=== PATIENT | male | born 1945 | race Hispanic/Latino ===

== ENCOUNTER 2018-04-22 19:22 | Emergency (ER) | payer OTHER ==
--- NOTE | 2018-04-22 20:51 | ER ---
Nurse's Notes [facility] Name: Tarik Lorenzo Age: 72 yrs Sex: Male : 1945 Arrival Date: 04/22/2018 Time: 19:24 Bed 30 Private MD: Rancho Goode Diagnosis: Rash and other nonspecific skin eruption Presentation: 04/22 19:40 Presenting complaint: Patient states: Rash to both arms and his back, for the past 3 aj1 weeks. [facility] and he has tried calamine lotion, a steroid pack, benadryl but none of it has helped. Transition of care: patient was not received from another setting of care. Onset of symptoms was April 2018. Risk Assessment: Do you want to hurt yourself or someone else? Patient reports no desire to harm self or others. Initial Sepsis Screen: Does the patient meet any 2 criteria? No. Patient's initial sepsis screen is negative. Does the patient have a suspected source of infection? No. Patient's initial sepsis screen is negative. Care prior to arrival: None. 19:40 Method Of Arrival: Ambulatory aj1 19:40 Acuity: WAGNER 5 aj1 Triage Assessment: 19:46 General: Appears in no apparent distress. comfortable, Behavior is calm, cooperative, aj1 appropriate for age. Pain: Pain currently is 8 out of 10 on a pain scale. Neuro: Level of Consciousness is awake, alert, obeys commands. Cardiovascular: Patient's skin is warm and dry. Respiratory: Airway is patent Respiratory effort is even, unlabored, Respiratory pattern is regular, symmetrical. Historical: - Allergies: 19:46 No Known Allergies; aj1 - Home Meds: 19:46 metformin [Active]; levothyroxine oral [Active]; aj1 - PMHx: 19:46 Diabetes - IDDM; Hypothyroidism; aj1 - Immunization history:: Flu vaccine is up to date. - Social history:: Smoking status: Patient/guardian denies using tobacco. - Ebola Screening: : Patient denies travel to an Ebola-affected area in the 21 days before illness onset. Screenin:53 Abuse screen: Denies threats or abuse. Denies injuries from another. Nutritional rv screening: No deficits noted. Tuberculosis screening: No symptoms or risk factors identified. Fall Risk None identified. Assessment: 19:52 General: Appears in no apparent distress. comfortable, Behavior is calm, cooperative. rv Pain: Denies pain. Neuro: Level of Consciousness is awake, alert, obeys commands, Oriented to person, place, time, situation. Cardiovascular: Capillary refill < 3 seconds. Respiratory: Airway is patent. GI: No signs and/or symptoms were reported involving the gastrointestinal system. : No signs and/or symptoms were reported regarding the genitourinary system. EENT: No signs and/or symptoms were reported regarding the EENT system. Derm: Rash noted that is itchy, on GENERALIZED. Vital Signs: 19:46 BP 134 / 89; Pulse 89; Resp 18; Temp 97.5; Pulse Ox 97% on R/A; Weight 80.74 kg (R); aj1 Height 5 ft. 9 in. (175.26 cm) (R); Pain 8/10; 19:46 Body Mass Index 26.29 (80.74 kg, 175.26 cm) aj1 ED Course: 19:24 Patient arrived in ED. do 19:24 Rancho Goode MD is Private Physician. do 19:45 Triage completed. aj1 19:46 Arm band placed on Patient placed in an exam room. aj1 19:53 Patient has correct armband on for positive identification. Bed in low position. Call rv light in reach. Side rails up X 1. Pulse ox on. NIBP on. 19:56 Jose Enrique Huizar PA is PHCP. jr8 19:56 Christoph Rodas MD is Attending Physician. jr8 20:53 No provider procedures requiring assistance completed. Patient did not have IV access rv during this emergency room visit. Administered Medications: 20:53 Drug: hydrOXYzine 25 mg {Note: given IM in right deltoid.} Route: PO; rv 21:00 Follow up: Response: Medication administered at discharge. rv Outcome: 20:50 Discharge ordered by . jr8 20:54 Discharged to home ambulatory. rv 20:54 Condition: good 20:54 Discharge instructions given to patient, Instructed on discharge instructions, follow up and referral plans. medication usage, Demonstrated understanding of instructions, follow-up care, medications, Prescriptions given X 1. 20:59 Patient left the ED. rv Signatures: Vandana Gordillo RN RN aj1 Jose Enrique Huizar PA PA jr8 Shaye Bernal Ronaldo, RN RN rv Corrections: (The following items were deleted from the chart) 20:59 20:54 Discharge instructions given to patient, Instructed on discharge instructions, rv follow up and referral plans. medication usage, Demonstrated understanding of instructions, follow-up care, medications, Prescriptions given X rv
--- NOTE | 2018-04-22 20:51 | EDPHYS ---
Physician Documentation [facility] Name: Tarik Lorenzo Age: 72 yrs Sex: Male : 1945 Arrival Date: 04/22/2018 Time: 19:24 Bed 30 Private MD: Rancho Goode ED Physician Christoph Rodas HPI: 04/22 20:47 This 72 yrs old Male presents to ER via Ambulatory with complaints of Rash. jr8 20:47 The patient's rash thought to be caused by an unknown cause. The rash is located on the jr8 body diffusely. The rash can be described as papular. Onset: The symptoms/episode began/occurred gradually, 3 week(s) ago. Associated signs and symptoms: Pertinent positives: itching. Severity of symptoms: At their worst the symptoms were moderate in the emergency department the symptoms are unchanged. The patient has not experienced similar symptoms in the past. The patient has not recently seen a physician. Stated that he tried steroid shot by PCP when it originally started and then has been using OTC creams but without relief. Denies any other s/s . Historical: - Allergies: 19:46 No Known Allergies; aj1 - Home Meds: 19:46 metformin [Active]; levothyroxine oral [Active]; aj1 - PMHx: 19:46 Diabetes - IDDM; Hypothyroidism; aj1 - Immunization history:: Flu vaccine is up to date. - Social history:: Smoking status: Patient/guardian denies using tobacco. - Ebola Screening: : Patient denies travel to an Ebola-affected area in the 21 days before illness onset. ROS: 20:47 Eyes: Negative for injury, pain, redness, and discharge, ENT: Negative for injury, jr8 pain, and discharge, Neck: Negative for injury, pain, and swelling, Cardiovascular: Negative for chest pain, palpitations, and edema, Respiratory: Negative for shortness of breath, cough, wheezing, and pleuritic chest pain, Abdomen/GI: Negative for abdominal pain, nausea, vomiting, diarrhea, and constipation, Back: Negative for injury and pain, MS/Extremity: Negative for injury and deformity, Neuro: Negative for headache, weakness, numbness, tingling, and seizure. 20:47 Skin: Positive for rash, diffusely. Exam: 20:47 Eyes: Pupils equal round and reactive to light, extra-ocular motions intact. Lids and jr8 lashes normal. Conjunctiva and sclera are non-icteric and not injected. Cornea within normal limits. Periorbital areas with no swelling, redness, or edema. ENT: Nares patent. No nasal discharge, no septal abnormalities noted. Tympanic membranes are normal and external auditory canals are clear. Oropharynx with no redness, swelling, or masses, exudates, or evidence of obstruction, uvula midline. Mucous membranes moist. Neck: Trachea midline, no thyromegaly or masses palpated, and no cervical lymphadenopathy. Supple, full range of motion without nuchal rigidity, or vertebral point tenderness. No Meningismus. Cardiovascular: Regular rate and rhythm with a normal S1 and S2. No gallops, murmurs, or rubs. Normal PMI, no JVD. No pulse deficits. Respiratory: Lungs have equal breath sounds bilaterally, clear to auscultation and percussion. No rales, rhonchi or wheezes noted. No increased work of breathing, no retractions or nasal flaring. Abdomen/GI: Soft, non-tender, with normal bowel sounds. No distension or tympany. No guarding or rebound. No evidence of tenderness throughout. Back: No spinal tenderness. No costovertebral tenderness. Full range of motion. MS/ Extremity: Pulses equal, no cyanosis. Neurovascular intact. Full, normal range of motion. Neuro: Awake and alert, GCS 15, oriented to person, place, time, and situation. Cranial nerves II-XII grossly intact. Motor strength 5/5 in all extremities. Sensory grossly intact. Cerebellar exam normal. Normal gait. 20:47 Skin: rash a moderate rash is noted, rash can be described as papular, on the back, right arm and left arm. Vital Signs: 19:46 BP 134 / 89; Pulse 89; Resp 18; Temp 97.5; Pulse Ox 97% on R/A; Weight 80.74 kg (R); aj1 Height 5 ft. 9 in. (175.26 cm) (R); Pain 8/10; 19:46 Body Mass Index 26.29 (80.74 kg, 175.26 cm) aj1 MDM: 19:56 Patient medically screened. [facility] 20:47 Data reviewed: vital signs, nurses notes, and as a result, I will discharge patient. jr8 Data interpreted: Pulse oximetry: on room air is 97 %. Interpretation: normal. 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 ED course: Counseled patient on need for close monitoring of blood glucose while on the steroids. Needs to f/u with dermatology at this point for definitive care . Administered Medications: 20:53 Drug: hydrOXYzine 25 mg {Note: given IM in right deltoid.} Route: PO; rv 21:00 Follow up: Response: Medication administered at discharge. rv Disposition: 04/23 01:18 Co-signature as Attending Physician, Christoph Rodas MD. rn Disposition: 04/22/18 20:50 Discharged to Home. Impression: Rash and other nonspecific skin eruption. - Condition is Stable. - Discharge Instructions: Rash. - Prescriptions for Prednisone 20 mg Oral Tablet - take 3 tablets by ORAL route once daily for 3 days then two tablets for 3 days then 1 tablet for 3 days; 18 tablet. - Medication Reconciliation Form, Thank You Letter, Antibiotic Education, Prescription Opioid Use form. - Follow up: Private Physician; When: 1 - 2 days; Reason: Recheck today's complaints, Continuance of care, Re-evaluation by your physician. - Problem is new. - Symptoms have improved. Signatures: Vandana Gordillo RN RN aj1 Christoph Rodas MD MD rn Roszak, Josh, PA PA jr8 Lavon Segundo RN RN rv Corrections: (The following items were deleted from the chart) 04/22 20:59 20:50 04/22/2018 20:50 Discharged to Home. Impression: Rash and other nonspecific skin rv eruption. Condition is Stable. Forms are Medication Reconciliation Form, Thank You Letter, Antibiotic Education, Prescription Opioid Use. Follow up: Private Physician; When: 1 - 2 days; Reason: Recheck today's complaints, Continuance of care, Re-evaluation by your physician. Problem is new. Symptoms have improved. jr8
[2018-04-22] MEDS ORDERED: hydrOXYzine HCl 50 MG/ML VIAL IM ONE (20:56)
[2018-04-22] MEDS ORDERED: predniSONE 20 MG TAB ONE (21:03)
== END 2018-04-22 20:59 | disposition home or self-care (01) ==
LOC: ER 19:22
DX: R21 Rash and other nonspecific skin eruption (principal); E03.9 Hypothyroidism, unspecified; E11.9 Type 2 diabetes mellitus without complications
CPT/HCPCS: 99283; J3410; J7512

== ENCOUNTER 2018-06-26 12:46 | Emergency (ER) | payer OTHER ==
[2018-06-26] MEDS ORDERED: KETOROLAC 30 MG/ML INJ ONE (13:32)
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
== END 2018-06-26 14:25 | disposition home or self-care (01) ==
LOC: ER 12:46
DX: M54.5 Low back pain (principal); V49.40XA Driver injured in collision with unspecified motor vehicles in traffic accident, initial encounter
CPT/HCPCS: 72125; 96372; 99284

== ENCOUNTER 2021-06-29 13:00 | Emergency (ER) | payer OTHER ==
--- OUTSIDE RECORDS SUMMARY | 2021-06-29 13:03 | XMS REPORT | Continuity of Care Document ---
:1945 Author Organization [facility] t Address [address] [place] [address] Care Team Providers Name Role Phone Unavailable Unavailable Unavailable Payers Payer Name Policy Type Policy Number Effective Date Expiration Date María carrasquillo [employer] MED[employer]ARE ADV [id number] 2018 00:00:00 Problems This patient has no known problems. Allergies, Adverse Reactions, Alerts Allergy Allergy Status Severity Reaction(s) Onset Inactive Treating Comm ents Source Name Type Date Date Clinician NO KNOWN Drug Active [facility] ALLERG Class ity of S [facility] Medications This patient has no known medications. Procedures This patient has no known procedures. Encounters Start End Encounter Admission Attending Care Care Encounter Source Date/Time Date/Time Type Type Clinicians Facility Department ID 2021-05-20 2021-05-20 ambulatory [facility] [id number] [address] 00:00:00 [facility]00[facility] 2021-02-20 2021-02-20 Outpatient [facility] [id number] 00:00[facility]00 [facility]00[facility] 2021-02-19 2021-02-19 Outpatient [facility] [id number] [facility] 2021-01-19 2021-01-19 Outpatient [facility] [id number] [address] 00[facility]00[facility]00 [facility]00[facility] 2021-01-06 2021-01-06 Outpatient [facility] [id number] [address] 00[facility]00[facility]00 [facility]00[facility] 2020-12-30 2020-12-30 Outpatient [facility] [id number] [facility] 2020-12-30 2020-12-30 Out[facility] [id number] [facility] 2020-09-29 2020-09-29 [facility] [id number] [facility] 2020-01-09 2020-01-09 Outpatient [facility] [id number] [facility] 13:00:00 13:00:00 [id number] [facility] 2020-01-09 2020-01-09 Outpatient R [facility] [id number] [facility] 13:00:00 13:00:00 [facility] Results This patient has no known results.
[2021-06-29] MEDS ORDERED: DIPHENHYDRAMINE 25 MG TAB/CAP ONE (16:06)
[2021-06-29] MEDS ORDERED: predniSONE 20 MG TAB ONE (16:06)
[2021-06-29] MEDS ORDERED: FAMOTIDINE 20 MG TAB ONE (16:06)
[2021-06-29 16:08] LABS: Absolute Lymphocytes (CBC) 1.6 K/uL (0.7-4.9); Hematocrit 46.6 % (39.6-49.0); Lymphocytes % 19.1 % (15.3-44.8); MPV 7.8 fL (7.6-11.3); RBC Red Blood Cell Count 5.13 M/uL (4.33-5.43)
[2021-06-29 16:23] LABS: Albumin 4.1 g/dL (3.4-5.0); Bilirubin Total 0.5 mg/dL (0.2-1.0); Potassium 3.8 mmol/L (3.5-5.1); Protein, Total 7.8 g/dL (6.4-8.2)
--- NOTE | 2021-06-29 16:40 | EDPHYS ---
Physician Documentation [facility] Name: Tarik Lorenzo Age: 76 yrs Sex: Male : 1945 Arrival Date: 06/29/2021 Time: 13:04 Bed 2 Private MD: Curtis [facility] ED Physician Bryon Ding HPI: 06/29 15:56 This 76 yrs old Male presents to ER via Ambulatory with complaints of Rash, dakot[place] Itching all over. 15:56 The patient's rash thought to be caused by Eczema Dermatitis. The rash is located on d[place] the body diffusely. The rash can be described as erythematous, flat. Onset: The symptoms/episode began/occurred 2 year(s) ago. Associated signs and symptoms: Pertinent positives: burning sensation, Pertinent negatives: None. Severity of symptoms: At their worst the symptoms were moderate. Treatment given at home: Benadryl. The patient has experienced similar episodes in the past, chronically. Historical: - Allergies: 13:56 No Known Allergies; ap3 - Home Meds: 13:56 levothyroxine oral [Active]; metformin [Active]; ap3 - PMHx: 13:56 Diabetes - IDDM; Hypothyroidism; ap3 - Immunization history:: Client reports receiving the 2nd dose of the Covid vaccine, and booster. - Social history:: Smoking status: Patient denies any tobacco usage or history of. Patient uses alcohol, occasionally. - Family history:: not pertinent. ROS: 15:56 Constitutional: Negative for fever, chills, and weight loss, Eyes: Negative for injury, [place]ot[place] pain, redness, and discharge, ENT: Negative for injury, pain, and discharge, Neck: Negative for injury, pain, and swelling, Cardiovascular: Negative for chest pain, palpitations, and edema, Respiratory: Negative for shortness of breath, cough, wheezing, and pleuritic chest pain, Abdomen/GI: Negative for abdominal pain, nausea, vomiting, diarrhea, and constipation, Back: Negative for injury and pain, : Negative for injury, bleeding, discharge, and swelling, MS/Extremity: Negative for injury and deformity, Neuro: Negative for headache, weakness, numbness, tingling, and seizure, Psych: Negative for depression, anxiety, suicide ideation, homicidal ideation, and hallucinations, Allergy/Immunology: Negative for hives, rash, and allergies, Endocrine: Negative for neck swelling, polydipsia, polyuria, polyphagia, and marked weight changes, Hematologic/Lymphatic: Negative for swollen nodes, abnormal bleeding, and unusual bruising. 15:56 Skin: Positive for rash, diffusely. Exam: 15:56 Constitutional: This is a well developed, well nourished patient who is awake, alert, dakotah and in no acute distress. Head/Face: Normocephalic, atraumatic. Eyes: Pupils equal round and reactive to light, extra-ocular motions intact. Lids and lashes normal. Conjunctiva and sclera are non-icteric and not injected. Cornea within normal limits. Periorbital areas with no swelling, redness, or edema. ENT: Nares patent. No nasal discharge, no septal abnormalities noted. Tympanic membranes are normal and external auditory canals are clear. Oropharynx with no redness, swelling, or masses, exudates, or evidence of obstruction, uvula midline. Mucous membranes moist. Neck: Trachea midline, no thyromegaly or masses palpated, and no cervical lymphadenopathy. Supple, full range of motion without nuchal rigidity, or vertebral point tenderness. No Meningismus. Chest/axilla: Normal chest wall appearance and motion. Nontender with no deformity. No lesions are appreciated. Cardiovascular: Regular rate and rhythm with a normal S1 and S2. No gallops, murmurs, or rubs. Normal PMI, no JVD. No pulse deficits. Respiratory: Lungs have equal breath sounds bilaterally, clear to auscultation and percussion. No rales, rhonchi or wheezes noted. No increased work of breathing, no retractions or nasal flaring. Abdomen/GI: Soft, non-tender, with normal bowel sounds. No distension or tympany. No guarding or rebound. No evidence of tenderness throughout. Back: No spinal tenderness. No costovertebral tenderness. Full range of motion. Male : Normal genitalia with no discharge or lesions. MS/ Extremity: Pulses equal, no cyanosis. Neurovascular intact. Full, normal range of motion. Neuro: Awake and alert, GCS 15, oriented to person, place, time, and situation. Cranial nerves II-XII grossly intact. Motor strength 5/5 in all extremities. Sensory grossly intact. Cerebellar exam normal. Normal gait. Psych: Awake, alert, with orientation to person, place and time. Behavior, mood, and affect are within normal limits. 15:56 Skin: Appearance: Color: erythematous, Temperature: normal temperature, Moisture: normal moisture, petechiae, not noted, ecchymosis, not noted, flushing, not noted, diaphoresis is not appreciated, swelling, is not appreciated, abscess, not appreciated, cellulitis, is not appreciated, induration, is not appreciated. Vital Signs: 13:53 BP 143 / 81; Pulse 74; Temp 97.1(TE); Pulse Ox 100% on R/A; Weight 77.11 kg; Height 5 ap3 ft. 9 in. (175.26 cm); 16:18 BP 145 / 83; Pulse 55; Resp 16; Pulse Ox 100% on R/A; ae4 13:53 Body Mass Index 25.10 (77.11 kg, 175.26 cm) ap3 MDM: 15:01 Patient medically screened. dakotah 15:59 Data reviewed: vital signs, nurses notes, lab test result(s), CBC, electrolytes, [place] hepatic panel. Data interpreted: psychosocial rehabilitation counselor: not applicable for this patient encounter. rate is 74 beats/min, rhythm is regular, Pulse oximetry: on room air is 100 %. Counseling: I had a detailed discussion with the patient and/or guardian regarding: the historical points, exam findings, and any diagnostic results supporting the discharge/admit diagnosis, lab results, the need for outpatient follow up, for definitive care, a library circulation clerk, an infectious disease specialist. 06/29 15:09 Order name: CBC with Diff; Complete Time: 16:39 [facility] 06/29 15:09 Order name: Comprehensive Metabolic Panel; Complete Time: 16:39 [place] Administered Medications: 16:11 Drug: predniSONE 60 mg Route: PO; ae4 16:52 Follow up: No change reported ae4 16:11 Drug: Pepcid (famotidine) 40 mg Route: PO; ae4 16:51 Follow up: No change reported ae4 16:11 Drug: Benadryl (diphenhydrAMINE) 50 mg Route: PO; ae4 16:51 Follow up: Response: No adverse reaction; No adverse reaction, no change reported ae4 Disposition Summary: 06/29/21 16:39 Discharge Ordered Location: Home [place] Problem: new d[place]ot[place] Symptoms: have improved [place]ot[place] Condition: Stable [place] Diagnosis - Dermatitis, unspecified [place] - Type 1 diabetes mellitus with hyperglycemia d[place] Followup: [place]ot[place] - With: - When: 2 - 3 days - Reason: Recheck today's complaints, Continuance of care, Re-evaluation by your physician Followup: [place] - With: - When: 2 - 3 days - Reason: Recheck today's complaints, Re-evaluation by your physician Discharge Instructions: - Discharge Summary Sheet dakotah - Contact Dermatitis d[place] - Eczema [place] - Hyperglycemia [place] - Rash, Adult [place] - Rash, Adult, [id number] d[place] - Contact Dermatitis, [id number] [facility] Forms: - Medication Reconciliation Form [place] - Thank You Letter [place] - Antibiotic Education [place] - Prescription Opioid Use [facility] Prescriptions: - Hydroxyzine HCl 25 mg Oral Tablet - take 1 tablet by ORAL route every 6 hours As needed; 30 tablet; Refills: 0, [facility] Product Selection Permitted - Pepcid 20 mg Oral Tablet - take 1 tablet by ORAL route every 12 hours for 30 days; 60 tablet; Refills: 0, [facility] Product Selection Permitted - Prednisone 20 mg Oral Tablet - take 1 tablet by ORAL route once daily for 5 days; 7 tablet; Refills: 0, [facility] Product Selection Permitted Signatures: Dispatcher [employer] Bryon Watts MD MD cha Prokisch, Amanda RN RN ap3 Vidal Jade RN RN ae4
--- NOTE | 2021-06-29 16:40 | ER ---
Nurse's Notes [facility] Name: Tarik Lorenzo Age: 76 yrs Sex: Male : 1945 Arrival Date: 06/29/2021 Time: 13:04 Bed 2 Private MD: Hugo Acevedo Diagnosis: Dermatitis, unspecified;Type 1 diabetes mellitus with hyperglycemia Presentation: 06/29 13:53 Chief complaint: Patient states: he has a rash on his arms, abdomen, and legs that is ap3 itchy. The rash began yesterday. However he states this rash comes and goes for the last 3 years. Coronavirus screen: At this time, the client does not indicate any symptoms associated with coronavirus-19. Ebola Screen: No symptoms or risks identified at this time. Initial Sepsis Screen: Does the patient meet any 2 criteria? No. Patient's initial sepsis screen is negative. Does the patient have a suspected source of infection? No. Patient's initial sepsis screen is negative. Risk Assessment: Do you want to hurt yourself or someone else? Patient reports no desire to harm self or others. Onset of symptoms is unknown. 13:53 Method Of Arrival: Ambulatory ap3 13:53 Acuity: WAGNER 4 ap3 Triage Assessment: 13:57 General: Appears in no apparent distress. Behavior is calm, cooperative. Derm: Rash ap3 noted that is itchy, red. Historical: - Allergies: 13:56 No Known Allergies; ap3 - Home Meds: 13:56 levothyroxine oral [Active]; metformin [Active]; ap3 - PMHx: 13:56 Diabetes - IDDM; Hypothyroidism; ap3 - Immunization history:: Client reports receiving the 2nd dose of the Covid vaccine, and booster. - Social history:: Smoking status: Patient denies any tobacco usage or history of. Patient uses alcohol, occasionally. - Family history:: not pertinent. Screenin:11 Abuse screen: Denies threats or abuse. Nutritional screening: No deficits noted. ae4 Tuberculosis screening: No symptoms or risk factors identified. Fall Risk None identified. Assessment: 16:16 General: Appears in no apparent distress. comfortable, Behavior is calm, cooperative. ae4 Pain: Denies pain. Neuro: Level of Consciousness is awake, alert, obeys commands, Oriented to person, place, time, situation, Appropriate for age. Cardiovascular: Patient's skin is warm and dry. Respiratory: Airway Respiratory effort is even, unlabored, Respiratory pattern is regular, symmetrical. GI: No signs and/or symptoms were reported involving the gastrointestinal system. : No signs and/or symptoms were reported regarding the genitourinary system. EENT: No signs and/or symptoms were reported regarding the EENT system. Derm: Rash noted that is red, raised, on back, chest, abdomen, left femoral area, left hip, right arm and left arm. Musculoskeletal: No deficits noted. Vital Signs: 13:53 BP 143 / 81; Pulse 74; Temp 97.1(TE); Pulse Ox 100% on R/A; Weight 77.11 kg; Height 5 ap3 ft. 9 in. (175.26 cm); 16:18 BP 145 / 83; Pulse 55; Resp 16; Pulse Ox 100% on R/A; ae4 13:53 Body Mass Index 25.10 (77.11 kg, 175.26 cm) ap3 ED Course: 13:04 Patient arrived in ED. mr 13:04 Hugo Acevedo DO is Private Physician. mr 13:56 Triage completed. ap3 13:58 Patient has correct armband on for positive identification. ap3 15:01 Bryon Ding MD is Attending Physician. dakotah 15:55 Inserted saline lock: 22 gauge in left antecubital area, using aseptic technique. Blood ae4 collected. 16:02 Vidal Jade, LAUREL is Primary Nurse. ae4 16:12 Arm band placed on right wrist. ae4 16:39 Hugo Acevedo DO is Referral Physician. d[place]otah 16:39 Gunnar Mcdaniel MD is Referral Physician. [place] 16:50 No provider procedures requiring assistance completed. IV discontinued, intact, ae4 bleeding controlled, No redness/swelling at site. Pressure dressing applied. Administered Medications: 16:11 Drug: predniSONE 60 mg Route: PO; ae4 16:52 Follow up: No change reported ae4 16:11 Drug: Pepcid (famotidine) 40 mg Route: PO; ae4 16:51 Follow up: No change reported ae4 16:11 Drug: Benadryl (diphenhydrAMINE) 50 mg Route: PO; ae4 16:51 Follow up: Response: No adverse reaction; No adverse reaction, no change reported ae4 Intake: Outcome: 16:39 Discharge ordered by MD. claire 16:50 Discharged to home ambulatory. ae4 16:50 Condition: stable 16:50 Condition: stable 16:50 Condition: stable 16:50 Discharge instructions given to patient, Instructed on discharge instructions, follow up and referral plans. medication usage, Demonstrated understanding of instructions, follow-up care, medications, Prescriptions given X 3. 16:50 Patient left the ED. ae4 Signatures: Bryon Ding MD MD cha Rivera, Mary mr Prokisch, Amanda, RN RN ap3 Vidal Jade RN RN ae4
[2021-06-29 16:58] VITALS: TEMP 97.1; O2SAT 100
[2021-06-29 17:01] VITALS: BP 145/83
== END 2021-06-29 16:50 | disposition home or self-care (01) ==
LOC: ER 13:00
DX: L30.9 Dermatitis, unspecified (principal); E10.65 Type 1 diabetes mellitus with hyperglycemia; E03.9 Hypothyroidism, unspecified
CPT/HCPCS: 36415; 80053; 85025; 99284; J7512

== ENCOUNTER 2022-05-21 19:43 | Emergency (ER) | payer OTHER ==
[2022-05-21] MEDS ORDERED: MAGNESIUM SULF 1GM/2ML VIAL IM ONE (19:44)
[2022-05-21] MEDS ORDERED: EPINEPHrine 1 MG/10 ML SYR IV ONE (19:44)
[2022-05-21] MEDS ORDERED: Caclcium Chloride 10% INJ SYR IV ONE (19:44)
--- OUTSIDE RECORDS SUMMARY | 2022-05-21 19:47 | XMS REPORT | Continuity of Care Document ---
:1945 Author Organization [facility] t Address [address] [place] [address] [address]. [address] [place] [address] Care Team Providers Name Role Phone Hugo Acevedo Attending Clinician Unavailable Payers Payer Name Policy Type Policy Number Effective Date Expiration Date S neida AETNA MEDICARE C1 [id number] 2020 Common Spi rit 00:00:[address] - [facility] AENA MEDICARE [id number] 2018 ADV 00:00:00 Problems Condition Condition Condition Status Onset Resolution Last Treating Co mments Source Name Details Category Date Date Treatment Clinician Date [id number] Hyperlipid Problem Active Com mon emia, Spirit unspecifie - [facility] [id number] Type 2 Problem Active Common diabetes Spirit mellitus - [facility] with 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 - [facility] rhinitis, [facility] trigger [facility] Allergies, Adverse Reactions, Alerts Allergy Allergy Status Severity Reaction(s) Onset Inactive Treating Comm ents Source Name Type Date Date Clinician NO KNOWN Drug Active Univers ALLERGIE Class ity of [facility] Social History Social Habit Start Date Stop Date Quantity Comments Source History of Tobacco Use Co mmon [facility] Sex Assigned At Com mon [facility] Smoking Status Start Date Stop Date Source Never Smoker Common [facility] Medications Ordered Filled Start Stop Current Ordering Indication Dosage Frequency Signature Comments Components Source Medication Medication Date Date Medication? Clinician (SIG) Name Name Kensonal Valencia 2020-07 No 40mg Common (Triamcinol (Triamcinol 1-17 S pirit one) one) 00:00: - [facility] Annie Valencia 2020-07 No 40mg Common (Triamcinol (Triamcinol 1-17 S pirit one) one) 00:00: - [facility] Annie Valencia 2020-07 No 40mg Common (Triamcinol (Triamcinol 1-17 S pirit one) one) 00:00: - [facility] Medrol 4 MG Medrol 4 MG 2020-07- No Medrol 4 1-17 11-23 MG 00:00: 00:00 00 :00 Annie Valencia No 40mg Common (Triamcinol (Triamcinol 8-20 S pirit one) one) 00:00: - [facility] Annie Valencia No 40mg Common (Triamcinol (Triamcinol 8-20 S pirit one) one) 00:00: - [facility] Annie Valencia No 40mg Common (Triamcinol (Triamcinol 8-20 S pirit one) one) 00:00: - [facility] Gabapentin Gabapentin No 1{capsu QD Gabapentin 300 MG 300 MG le} 300 MG Cholecalcif Cholecalcif No 1{table QD Cholecalci dayna 50 MCG dayna 50 MCG t} ferol 50 (1999) (1999) MCG (1999) metFORMIN metFORMIN No 1{table BID metFORMIN HCl 1000 MG HCl 1000 MG t_with_ HCl 1000 a_meal} MG Gabapentin Gabapentin No 1{capsu QD Gabapentin 300 MG 300 MG le} 300 MG Triamcinolo Triamcinolo No 1{appli BID Triamcinol ne ne cation_ one Acetonide Acetonide to_affe Acetonide 0.025 % 0.025 % cted_ar 0.025 % ea} metFORMIN metFORMIN No 1{table QD metFORMIN HCl 500 MG HCl 500 MG t_with_ HCl 500 MG a_meal} Cholecalcif Cholecalcif No 1{table QD Cholecalci dayna 50 MCG dayna 50 MCG t} ferol 50 (1999) (1999) MCG (1999) glipiZIDE glipiZIDE No QD glipiZIDE 10 MG 10 MG 10 MG Levothyroxi Levothyroxi No QD Levothyrox ne Sodium ne Sodium ine Sodium 100MCG 100MCG 100MCG metFORMIN metFORMIN No 1{table BID HCl 1000 MG HCl 1000 MG t_with_ a_meal} Gabapentin Gabapentin No 1{capsu QD 300 MG 300 MG le} Levothyroxi Levothyroxi No QD ne Sodium ne Sodium 112 MCG 112 MCG Triamcinolo Triamcinolo No 1{appli BID ne ne cation_ Acetonide Acetonide to_affe 0.025 % 0.025 % cted_ar ea} Cholecalcif Cholecalcif No 1{table QD dayna 50 MCG dayna 50 MCG t} (1999) (1999) glipiZIDE glipiZIDE No BID 10 MG 10 MG Triamcinolo Triamcinolo No 1{appli BID Triamcinol ne ne cation_ one Acetonide Acetonide to_affe Acetonide 0.025 % 0.025 % cted_ar 0.025 % ea} Cholecalcif Cholecalcif No 1{table QD Cholecalci dayna 50 MCG dayna 50 MCG t} ferol 50 (1999) (1999) MCG (1999) Gabapentin Gabapentin No 1{capsu QD Gabapentin 300 MG 300 MG le} 300 MG metFORMIN metFORMIN No 1{table BID metFORMIN HCl 1000 MG HCl 1000 MG t_with_ HCl 1000 a_meal} MG glipiZIDE glipiZIDE No BID glipiZIDE 10 MG 10 MG 10 MG Levothyroxi Levothyroxi No QD Levothyrox ne Sodium ne Sodium ine Sodium 112 MCG 112 MCG 112 MCG Triamcinolo Triamcinolo No 1{appli BID Triamcinol ne ne cation_ one Acetonide Acetonide to_affe Acetonide 0.025 % 0.025 % cted_ar 0.025 % ea} glipiZIDE glipiZIDE No BID glipiZIDE 10 MG 10 MG 10 MG Levothyroxi Levothyroxi No QD Levothyrox ne Sodium ne Sodium ine Sodium 112 MCG 112 MCG 112 MCG Gabapentin Gabapentin No 1{capsu QD Gabapentin 300 MG 300 MG le} 300 MG Cholecalcif Cholecalcif No 1{table QD Cholecalci dayna 50 MCG dayna 50 MCG t} ferol 50 (1999) (1999) MCG (1999) metFORMIN metFORMIN No 1{table BID metFORMIN HCl 1000 MG HCl 1000 MG t_with_ HCl 1000 a_meal} MG Triamcinolo Triamcinolo No 1{appli BID Triamcinol ne ne cation_ one Acetonide Acetonide to_affe Acetonide 0.025 % 0.025 % cted_ar 0.025 % ea} glipiZIDE glipiZIDE No BID glipiZIDE 10 MG 10 MG 10 MG Levothyroxi Levothyroxi No QD Levothyrox ne Sodium ne Sodium ine Sodium 112 MCG 112 MCG 112 MCG Vital Signs Vital Name Observation Time Observation Value Comments Source height 2022-02-23 09:50:00 67.5 [in_i] [facility] weight 2022-02-23 09:50:00 174 [lb_av] [facility] temperature 2022-02-23 09:50:00 96.9 [degF] [facility] bmi 2022-02-23 09:50:00 26.85 kg/m2 [facility] oximetry 2022-02-23 09:50:00 96 % [facility] respiratory rate 2022-02-23 09:50:00 16 /min Comm on [facility] blood pressure 2022-02-23 09:50:00 131 mm[Hg] [facility] - systolic [facility] blood pressure 2022-02-23 09:50:00 74 mm[Hg] [facility] - diastolic [facility] weight 2021-11-24 10:00:00 175.6 [lb_av] [facility] temperature 2021-11-24 10:00:00 97.7 [degF] [facility] bmi 2021-11-24 10:00:00 25.93 kg/m2 [facility] oximetry 2021-11-24 10:00:00 97 % [facility] respiratory rate 2021-11-24 10:00:00 18 /min Comm on [facility] blood pressure 2021-11-24 10:00:00 123 mm[Hg] Common [facility] - systolic [facility] blood pressure 2021-11-24 10:00:00 73 mm[Hg] Common [facility] - diastolic [facility] height 2021-11-24 10:00:00 69 [in_i] Common S pirit - [facility] height 2021-07-10 08:40:00 69 [in_i] Common S pirit [facility] weight 2021-07-10 08:40:00 175.5 [lb_av] [facility] temperature 2021-07-10 08:40:00 97.7 [degF] [facility] bmi 2021-07-10 08:40:00 25.91 kg/m2 [facility] oximetry 2021-07-10 08:40:00 99 % Common S [facility] respiratory rate 2021-07-10 08:40:00 18 /min Comm on [facility] blood pressure 2021-07-10 08:40:00 135 mm[Hg] Common [facility] - systolic [facility] blood pressure 2021-07-10 08:40:00 73 mm[Hg] Common [facility] - diastolic [facility] height 2021-05-20 15:10:00 69 [in_i] Common S pirit - [facility] weight 2021-05-20 15:10:00 178.4 [lb_av] Common [facility] temperature 2021-05-20 15:10:00 97.0 [degF] [facility] bmi 2021-05-20 15:10:00 26.34 kg/m2 [facility] oximetry 2021-05-20 15:10:00 97 % Common S [facility] respiratory rate 2021-05-20 15:10:00 16 /min Comm on [facility] blood pressure 2021-05-20 15:10:00 131 mm[Hg] Common [facility] - systolic [facility] blood pressure 2021-05-20 15:10:00 73 mm[Hg] Common [facility] - diastolic [facility] Procedures This patient has no known procedures. Encounters Start End Encounter Admission Attending Care Care Encounter Source Date/Time Date/Time Type Type Clinicians Facility Department ID 2022-02-22 Outpatient Acevedo, STLMLC STLMLC [id number] Common 13:59:01 Hugo [facility] 2021-07-29 Outpatient Acevedo, STLMLC STLMLC [id number] Common 14:32:13 Hugo [facility] 2021-07-29 Outpatient Acevedo, STLMLC STLMLC [id number] Common 14:31:53 Hugo [facility] 2021-07-29 Outpatient Acevedo, STLMLC STLMLC [id number] Common 13:23:06 Hugo [address] [facility] 2021-07-29 Outpatient Acevedo, STLMLC STLMLC [id number] Common 13:19:41 Hugo 54423 [facility] 2021-07-29 Outpatient Acevedo, STLMLC STLMLC [id number] Common 12:45:38 Hugo 23418 [facility] 2022-02-23 2022-02-23 OFFICE STLMLC STLMLC [id number] Co mmon 00:00:00 00:00:00 VISIT [facility] ESTAB PT - [facility] LEVEL 4 [facility] 2022-02-23 2022-02-23 (TEL) STLMLC STLMLC [id number] Co mmon 00:00:00 00:00:00 [facility] 2021-11-24 2021-11-24 (ESTPT) STLMLC STLMLC [id number] Co mmon 00:00:00 00:00:00 Yobany ang [facility] 2021-07-10 2021-07-10 OFFICE STLMLC STLMLC [id number] Co mmon 00:00:00 00:00:00 VISIT Jericho OWEN PT - [facility] LEVEL [address] [facility] 2021-05-20 2021-05-20 OFFICE STLMLC STLMLC [id number] Co mmon 00:00:00 00:00:00 VISIT JEROME mejias PT LEVEL 3 - [facility] 2021-02-20 2021-02-20 Outpatient STLMLC STLMLC [id number] Common 00:00:00 00:00:00 [facility] 2021-02-19 2021-02-19 Outpatient STLMLC STLMLC [id number] Common 00:00:00 00:00:00 [facility] 2021-01-19 2021-01-19 Outpatient STLMLC STLMLC [id number] Common 00:00:00 00:00:00 [facility] 2021-01-06 2021-01-06 Outpatient STLMLC STLMLC [id number] Common 00:00:00 00:00:00 [facility] 2020-12-30 2020-12-30 Outpatient STLMLC STLMLC [id number] Common 00:00:00 00:00:00 [facility] 2020-12-30 2020-12-30 Outpatient STLMLC STLMLC [id number] Common 00:00:00 00:00:00 [facility] 2020-09-29 2020-09-29 Outpatient STLMLC STLMLC [id number] Common 00:00:00 00:00:00 [facility] 2020-01-09 2020-01-09 Outpatient R [facility] [id number] Univers 13:00:00 13:00:00 [facility] Results Test Description Test Time Test Comments Results Result Comments Source Lipid Panel With LDL/HDL Ratio 2022-02-16 00:00:00 Test Item Value Reference Range Interpretation Comme nts Cholesterol, Total (test code 166 mg/dL See_Comment [Automated message] The system = 2093-3) which generated this result transmitted ref erence range: 100-199 mg/dL. The reference range was not u sed to interpret this result as normal/abnormal. Triglycerides (test code = 84 mg/dL See_Comment [Automated message] The system 8941-8) which generated this result transmitted ref erence range: 0-149 mg/dL. Th e reference range was not used to interpret this result as hima l/abnormal. HDL Cholesterol (test code = 48 mg/dL See_Comment [Automated message] The system 9841-9) which generated this result transmitted ref erence range: >39 mg/dL. The refe rence range was not used to int erpret this result as hima l/abnormal. UA/M w/rflx Culture, [id number] 00:00:00 Test Item Value Reference Range Interpretation Comments Specific [place] (test >=1.030 1.005-1.030 A code = 2965-2) pH (test code = 5.5 5.0-7.5 5803-2) Urine-Color (test code Yellow Yellow = 5778-6) Appearance (test code Clear Clear = 5767-9) WBC Esterase (test Negative Negative code = 5799-2) Protein (test code = Trace Negative/Trace 89821-3) Glucose (test code = Negative Negative 2349-9) Ketones (test code = Negative Negative 2514-8) Occult Blood (test Negative Negative code = 5794-3) Bilirubin (test code = Negative Negative 5770-3) Urobilinogen,Semi-Qn 0.2 mg/dL See_Comment [Autom ated message] (test code = 16084-1) The sy stem which generated this result transmitted ref erence range: 0.2-1.0 mg/dL. The reference r alvin was not used to interpret this result as normal/abnor mal. Nitrite, Urine (test Negative Negative code = 5802-4) Microscopic See below: Examination (test code = 94451-3) Urinalysis Reflex (test code = UNLOINC) Prostate-Specific Ag, [id number] 00:00:00 Test Item Value Reference Range Interpretation Comments Prostate Specific Ag 0.4 ng/mL See_Comment [Autom ated message] (test code = 2857-1) The sys tem which generated this result transmitted ref erence range: 0.0-4.0 ng/mL. The reference r alvin was not used to int erpret this result as normal/abnormal . Thyroid Panel With [id number] 00:00:00 Test Item Value Reference Range Interpretation Comments TSH (test code = 4.060 uIU/mL See_Comment [Automated message] 11434-4) The system [employer] generated this result transmitted ref erence range: 0.450-4. 500 uIU/mL. The ref erence range was not u sed to interpret this result as normal/abnor mal. Thyroxine (T4) (test 8.8 ug/dL See_Comment [Autom ated message] code = 3026-2) The system [facility] generated this result transmitted ref erence range: 4.5-12.0 ug/dL. The refe rence range was not u sed to interpret this result as normal/abnor mal. T3 Uptake (test code 29 % See_Comment [Autom ated message] = 3050-2) The system [employer] generated this result transmitted ref erence range: 24-39 %. The reference range was not used to int erpret this result as normal/abnormal . Free Thyroxine Index 2.6 1.2-4.9 (test code = 57184-0) Microalbumin/Creat Ratio, Random [id number] 00:00:00 Test Item Value Reference Range Interpretation Comments Creatinine, Urine 204.7 mg/dL Not Estab. mg/dL (test code = 2161-8) Albumin, Urine 7.5 ug/mL Not Estab. ug/mL (test code = 51704-4) Alb/Creat Ratio 4 mg/g creat See_Comment [Automated message] (test code = The system [employer] 01914-7) generated this result transmitted ref erence range: 0-29 mg/ g creat. The reference r alvin was not used to int erpret this result as normal/abnormal . Hemoglobin [id number] 00:00:00 Test Item Value Reference Range Interpretation Comments Hemoglobin A1c (test 7.2 % See_Comment H [Autom ated message] The code = 4548-4) system which generated this result tra nsmitted reference range : 4.8-5.6 %. The referenc e range was not used to interpret this result as normal/abnormal . Comp. Metabolic Panel (14) (CMP)2022-02-16 00:00:00 Test Item Value Reference Range Interpretation Comments Glucose (test code = 89 mg/dL See_Comment [Autom ated message] 8731-7) The system [employer] generated this result transmitted ref erence range: 65-99 mg /dL. The reference r alvin was not used to interpret this result as normal/abnor mal. BUN (test code = 22 mg/dL See_Comment [Automated message] 3094-0) The system [employer] generated this result transmitted ref erence range: 8-27 mg/ dL. The reference r alvin was not used to interpret this result as normal/abnor mal. Creatinine (test code 0.81 mg/dL See_Comment [Auto mated message] = 2160-0) The system [employer] generated this result transmitted ref erence range: 0.76-1.2 7 mg/dL. The refe rence range was not u sed to interpret this result as normal/abnor mal. BUN/Creatinine Ratio 27 10-24 H (test code = 3097-3) Sodium (test code = 138 mmol/L See_Comment [Automa lázaro message] 1081-2) The system [employer] generated this result transmitted ref erence range: 134-144 mmol/L. The ref erence range was not u sed to interpret this result as normal/abnor mal. Potassium (test code = 3.9 mmol/L See_Comment [Aut omated message] 0406-3) The system [employer] generated this result transmitted ref erence range: 3.5-5.2 mmol/L. The ref erence range was not u sed to interpret this result as normal/abnor mal. Chloride (test code = 102 mmol/L See_Comment [Auto mated message] 2884-0) The system [employer] generated this result transmitted ref erence range: 96-106 m mol/L. The reference r alvin was not used to interpret this result as normal/abnor mal. Carbon Dioxide, Total 21 mmol/L See_Comment [Auto mated message] (test code = 8955-9) The s tem which generated this result transmitted ref erence range: 20-29 mm ol/L. The reference r alvin was not used to interpret this result as normal/abnor mal. Calcium (test code = 9.2 mg/dL See_Comment [Autom ated message] 84381-5) The system [facility] generated this result transmitted ref erence range: 8.6-10.2 mg/dL. The refe rence range was not u sed to interpret this result as normal/abnor mal. Protein, Total (test 6.3 g/dL See_Comment [Autom ated message] code = 2885-2) The system [facility] generated this result transmitted ref erence range: 6.0-8.5 g/dL. The reference r alvin was not used to interpret this result as normal/abnor mal. Albumin (test code = 4.3 g/dL See_Comment [Autom ated message] 1751-7) The system [facility] generated this result transmitted ref erence range: 3.7-4.7 g/dL. The reference r alvin was not used to interpret this result as normal/abnor mal. Globulin, Total (test 2.0 g/dL See_Comment [Auto mated message] code = 67478-8) The system [facility] generated this result transmitted ref erence range: 1.5-4.5 g/dL. The reference r alvin was not used to interpret this result as normal/abnor mal. A/G Ratio (test code = 2.2 1.2-2.2 1759-0) Bilirubin, Total (test 0.6 mg/dL See_Comment [Aut omated message] code = 1975-2) The system [facility] generated this result transmitted ref erence range: 0.0-1.2 mg/dL. The reference r alvin was not used to interpret this result as normal/abnor mal. Alkaline Phosphatase 54 IU/L See_Comment [Autom ated message] (test code = 6768-6) The [facility] tem which generated this result transmitted ref erence range: 44-121 I U/L. The reference r alvin was not used to interpret this result as normal/abnor mal. AST (SGOT) (test code 20 IU/L See_Comment [Auto mated message] = 1920-8) The system [facility] generated this result transmitted ref erence range: 0-40 IU/ L. The reference range was not used to int erpret this result as normal/abnormal . ALT (SGPT) (test code 17 IU/L See_Comment [Auto mated message] = 0622-6) The system whic h generated this result transmitted ref erence range: 0-44 IU/ L. The reference range was not used to int erpret this result as normal/abnormal . Uric Acid, [id number] 00:00:00 Test Item Value Reference Range Interpretation Comments Uric Acid (test 4.5 mg/dL See_Comment [Automated message] The code = 3084-1) system which generated this result tra nsmitted reference range : 3.8-8.4 mg/dL. The refe rence range was not u sed to interpret this result as normal/abnormal . CBC With Differential/[id number] 00:00:00 Test Item Value Reference Range Interpretation Comments WBC (test code = 7.3 x10E3/uL See_Comment [Automated 2278-2) message] The sy stem which generated this result transmitted reference range : 3.4-10.8 x10E3/ uL. The reference r alvin was not used to interpret this result as normal/abnormal . RBC (test code = 4.72 x10E6/uL See_Comment [Automate d 309-8) message] The sy stem which generated this result transmitted reference range : 4.14-5.80 x10E6 /uL. The reference r alvin was not used to interpret this result as normal/abnormal . Hemoglobin (test code 14.3 g/dL See_Comment [Auto mated = 368-7) message] The sy stem which generated this result transmitted reference range : 13.0-17.7 g/dL. The reference range was not used to interpret this result as normal/abnormal . Hematocrit (test code 41.7 % See_Comment [Auto mated = 5464-3) message] The sy stem which generated this result transmitted reference range : 37.5-51.0 %. Th e reference range was not used to interpret this result as normal/abnormal . MCV (test code = 88 fL See_Comment [Automated 417-2) message] The sy stem which generated this result transmitted reference range : 79-97 fL. The reference range was not used to interpret this result as normal/abnormal . MCH (test code = 30.3 pg See_Comment [Automated 785-6) message] The sy stem which generated this result transmitted reference range : 26.6-33.0 pg. T he reference range was not used to interpret this result as normal/abnormal . MCHC (test code = 34.3 g/dL See_Comment [Automate d 786-4) message] The sy stem which generated this result transmitted reference range : 31.5-35.7 g/dL. The reference range was not used to interpret this result as normal/abnormal . RDW (test code = 13.1 % See_Comment [Automated 788-0) message] The sy stem which generated this result transmitted reference range : 11.6-15.4 %. Th e reference range was not used to interpret this result as normal/abnormal . Platelets (test code 270 x10E3/uL See_Comment [Autom ated = 777-3) message] The sy stem which generated this result transmitted reference range : 150-450 x10E3/u L. The reference r alvin was not used to interpret this result as normal/abnormal . Neutrophils (test 64 % Not Estab. % code = 770-8) Lymphs (test code = 22 % Not Estab. % 736-9) Monocytes (test code 10 % Not Estab. % = 5905-5) Eos (test code = 3 % Not Estab. % 713-8) Basos (test code = 1 % Not Estab. % 706-2) Immature Cells (test code = UNLOINC) Neutrophils 4.6 x10E3/uL See_Comment [Automated (Absolute) (test code messag e] The system = 751-8) which generated this result transmitted reference range : 1.4-7.0 x10E3/u L. The reference r alvin was not used to interpret this result as normal/abnormal . Lymphs (Absolute) 1.6 x10E3/uL See_Comment [Automate d (test code = 731-0) message] The system which generated this result transmitted reference range : 0.7-3.1 x10E3/u L. The reference r alvin was not used to interpret this result as normal/abnormal . Monocytes(Absolute) 0.7 x10E3/uL See_Comment [Automa lázaro (test code = 742-7) message] The system which generated this result transmitted reference range : 0.1-0.9 x10E3/u L. The reference r alvin was not used to interpret this result as normal/abnormal . Eos (Absolute) (test 0.2 x10E3/uL See_Comment [Autom ated code = 711-2) message] The s ystem which generated this result transmitted reference range : 0.0-0.4 x10E3/u L. The reference r avlin was not used to interpret this result as normal/abnormal . Baso (Absolute) (test 0.1 x10E3/uL See_Comment [Auto mated code = 704-7) message] The s ystem which generated this result transmitted reference range : 0.0-0.2 x10E3/u L. The reference r alvin was not used to interpret this result as normal/abnormal . Immature Granulocytes 0 % Not Estab. % (test code = 04706-2) Immature Grans (Abs) 0.0 x10E3/uL See_Comment [Autom ated (test code = 74409-1) messag e] The system which generated this result transmitted reference range : 0.0-0.1 x10E3/u L. The reference r alvin was not used to interpret this result as normal/abnormal . NRBC (test code = 56023-8) Hematology Comments: (test code = 91717-6) Lumbar Spine 3 ViewsLumbar Spine 3 Views
[2022-05-21] MEDS ORDERED: AMIODARONE IN DEXTROSE,ISO-OSM 360 MG/200 ML BAG IV ONE (19:53)
--- NOTE | 2022-05-21 20:56 | ER ---
Nurse's Notes [facility] Name: Tarik Lorenzo Age: 77 yrs Sex: Male : 1945 Arrival Date: 05/21/2022 Time: 19:45 Bed 3 Private MD: Diagnosis: Cardiac arrest, cause unspecified Presentation: 05/21 20:13 Chief complaint: EMS states: toned out for a 67 M, witnessed arrest, ems reports pt had tw5 chest pain for two hours prior, pt presented cold and clammy diaphoretic, asystole on scene. Care prior to arrival: Oral intubation, CPR via thumper was defibrillated Medication(s) given: Epi X 3 IV initiated. 20 GA, in the left antecubital area, IO LLE. Compressions began prior to arrival. 20:13 Method Of Arrival: EMS: [facility] tw5 20:13 Acuity: WAGNER 1 tw5 20:13 Care prior to arrival: Glucose check: 255. aa9 Screenin:17 Abuse screen: Denies threats or abuse. Denies injuries from another. Nutritional tw5 screening: No deficits noted. Tuberculosis screening: No symptoms or risk factors identified. Assessment: 19:43 Cardiovascular: Rhythm is asystole. aa9 19:45 Cardiovascular: Rhythm is PEA. aa9 19:49 Cardiovascular: Rhythm is ventricular fibrillation. aa9 19:51 Cardiovascular: Rhythm is ventricular tachycardia. aa9 19:53 Cardiovascular: Rhythm is ventricular fibrillation. aa9 19:55 Cardiovascular: Rhythm is PEA. aa9 19:57 Cardiovascular: Rhythm is PEA. aa9 20:17 CPR assessment: unresponsive, agonal respirations, intubated. Cardiac rhythm is tw5 asystole. General: Appears Intubated, unresponsive, pale, diaphoretic, cyanotic . Behavior is unresponsive. Neuro: Level of Consciousness is unresponsive. Cardiovascular: Rhythm is asystole. 21:00 General: Spoke with Colleen with [facility]. tw5 21:38 General: jewel bearing turner at bedside. aa9 22:14 General: under taker at bedside. aa9 22:16 General: spoke with Colleen with [facility], requested home phone and next of kin aa9 number. ED Course: 19:45 Patient arrived in ED. wm 19:49 Defibrillated with 200 joules. tw5 19:51 Defibrillated with 200 joules. tw5 19:53 Defibrillated with 200 joules. tw5 19:59 Defibrillated with 200 joules. tw5 20:07 Christina Steward MD is Attending Physician. sd2 20:17 Triage completed. tw5 20:17 Patient has correct armband on for positive identification. tw5 20:55 Christina Steward MD is Pronouncing Provider. sd2 Administered Medications: 19:43 Drug: amiodarone 300 mg Route: IVP; Site: left antecubital; aa9 19:44 Drug: EPINEPHrine 0.1mg/mL 1:10,000 1 mg Route: IVP; Site: left antecubital; aa9 19:44 Drug: Sodium Bicarbonate 1 amp Route: IVP; Site: left antecubital; aa9 19:47 Drug: EPINEPHrine 0.1mg/mL 1:10,000 1 mg Route: IVP; Site: left antecubital; aa9 19:49 Drug: Sodium Bicarbonate 1 amp Route: IVP; Site: left antecubital; aa9 19:50 Drug: amiodarone 300 mg Route: IVP; Site: left antecubital; aa9 19:51 Drug: EPINEPHrine 0.1mg/mL 1:10,000 1 mg Route: IVP; Site: left antecubital; aa9 19:54 Drug: EPINEPHrine 0.1mg/mL 1:10,000 1 mg Route: IVP; Site: left antecubital; aa9 19:58 Drug: EPINEPHrine 0.1mg/mL 1:10,000 1 mg Route: IVP; Site: left antecubital; aa9 20:03 Drug: Sodium Bicarbonate 1 amp Route: IVP; Site: left antecubital; aa9 Outcome: 20:04 Outcome Patient aa9 22:21 Patient left the ED. aa9 Signatures: Elicia Jansen Tiffany tw5 Christina Steward MD MD sd2 Fany Rice RN RN aa9 Corrections: (The following items were deleted from the chart) 20:30 20:17 Respiratory: tw5 aa9 20:31 20:24 Sodium Bicarbonate 1 amp IVP in left antecubital aa9 aa9 20:34 20:17 Outcome Patient tw5 aa9 20:41 19:51 Cardiovascular: Rhythm is ventricular fibrillation aa9 aa9
--- NOTE | 2022-05-21 20:56 | EDPHYS ---
Physician Documentation [facility] Name: Tarik Lorenzo Age: 77 yrs Sex: Male : 1945 Arrival Date: 05/21/2022 Time: 19:45 Bed 3 Private MD: ED Physician Christina Steward HPI: 05/21 20:07 This 77 yrs old Male presents to ER via Unassigned with complaints of CPR. sd2 20:07 77 yo M presents via EMS with CC of CPR in progress. Called due to patient being in sd2 distress. They arrived and patient was awake but cold, clammy and diaphoretic. Pt lost pulse and CPR was started immediately by EMS. Initial rhythm was asystole. One episode of V-fib en route and patient received shock x1 and multiple rounds of epi. Further history is limited at this time due to patient's condition.. ROS: 20:07 Unable to obtain ROS due to obtunded state. sd2 Exam: 20:07 Constitutional: The patient appears obviously ill, Unresponsive sd2 20:07 Head/face: Exam is negative for acute changes, obvious evidence of injury or deformity, contusion, deformity. 20:07 Eyes: Exam is negative for acute changes, injury or deformity, Pupils: Pupils are 5 mm and fixed bilaterally. 20:07 Chest/axilla: Exam negative for acute changes, deformity, paradoxical movements, rash. 20:07 Cardiovascular: No spontaneous cardiac activity noted, no pulse. 20:07 Respiratory: Exam negative for No spontaneous breath sounds noted. Pt intubated and ventilated with clear bilateral breath sounds.. 20:07 Abdomen/GI: Exam negative for acute changes, distension, pulsatile mass, scars. 20:07 : Exam negative for acute changes, blood at meatus. 20:07 Musculoskeletal/extremity: Exam is negative for acute changes, deformity, edema, erythema. 20:07 Skin: Exam negative for diaphoresis, erythema rash, swelling. 20:07 Neuro: GCS 3T, no purposeful movements noted. MDM: 20:07 Patient medically screened. sd2 20:07 Differential diagnosis: arrythmia, cardiac arrest, respiratory arrest, traumatic sd2 injury, overdose, asphyxiation, renal failure, among others. Data reviewed: vital signs, nurses notes, EMS record. ED course: CPR continued upon patient's arrival with rhythms of asystole and V-tach/fib with multiple shocks, rounds of medications including starting amiodarone gtt and double sequential shock performed without ROSC. Time of called at 2003.. Administered Medications: 19:43 Drug: amiodarone 300 mg Route: IVP; Site: left antecubital; aa9 19:44 Drug: EPINEPHrine 0.1mg/mL 1:10,000 1 mg Route: IVP; Site: left antecubital; aa9 19:44 Drug: Sodium Bicarbonate 1 amp Route: IVP; Site: left antecubital; aa9 19:47 Drug: EPINEPHrine 0.1mg/mL 1:10,000 1 mg Route: IVP; Site: left antecubital; aa9 19:49 Drug: Sodium Bicarbonate 1 amp Route: IVP; Site: left antecubital; aa9 19:50 Drug: amiodarone 300 mg Route: IVP; Site: left antecubital; aa9 19:51 Drug: EPINEPHrine 0.1mg/mL 1:10,000 1 mg Route: IVP; Site: left antecubital; aa9 19:54 Drug: EPINEPHrine 0.1mg/mL 1:10,000 1 mg Route: IVP; Site: left antecubital; aa9 19:58 Drug: EPINEPHrine 0.1mg/mL 1:10,000 1 mg Route: IVP; Site: left antecubital; aa9 20:03 Drug: Sodium Bicarbonate 1 amp Route: IVP; Site: left antecubital; aa9 Disposition: 20:07 . sd2 20:13 Chart complete. sd2 Disposition Summary: 05/21/22 20:56 Patient Location: [facility] sd2 Pronouncing Physician: Christina Steward Time of : 20:04 05/21/2022 sd2 Diagnosis - Cardiac arrest, cause unspecified sd2 Signatures: Christina Steward MD MD sd2 Fany Rice RN RN aa9
== END 2022-05-21 22:21 ==
LOC: ER 19:43
DX: I46.9 Cardiac arrest, cause unspecified (principal)
CPT/HCPCS: 92960; 96375; 96374; 92950; 99285; J3475; J0171; J0282